=== PATIENT | female | born 1935 | race Caucasian/White ===

== ENCOUNTER 2017-03-13 07:59 | Emergency (ER) | payer MEDICARE, OTHER | END 2017-03-13 11:20 | disposition home or self-care (01) | LOC: ER 07:59 | DX: S42.251A Displaced fracture of greater tuberosity of right humerus, initial encounter for closed fracture (principal); S00.12XA Contusion of left eyelid and periocular area, initial encounter; W06.XXXA Fall from bed, initial encounter; Y92.009 Unspecified place in unspecified non-institutional (private) residence as the place of occurrence of the external cause | CPT/HCPCS: 73502-RT; 96374; 96375 ==